=== PATIENT | female | born 1980 | race Caucasian/White ===

== ENCOUNTER 2017-01-16 23:57 | Inpatient (IN) | payer MEDICARE, OTHER ==
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
--- NOTE | ~2017-01-16 | PN ---
Unit #: [id number] #: [id number] Patient: ELIZABETH STRANGE [id number] [facility] [address] [place] [address] [id number] MR#: [id number] NAME: ELIZABETH STRANGE ROOM: P110 Age: 36 Sex: F Admission Date: 01/16/2017 : 1980 Attending Physician: Ed Salazar M.D. Admitting Physician: Ed Salazar M.D. Primary Care Physician: Primary Care Physician Rosalia CASSIDY NOTES DATE 01/22/2017 DISCUSSION Ms. Strange is a 36-year-old white female who was seen today and chart was reviewed and case was discussed with the staff. She has been anxious, withdrawn and rather seclusive to herself. Meanwhile, she has been cooperative with treatment recommendations and has been taking medications and tolerating them fairly well with no reported side effects. MENTAL STATUS EXAMINATION Young white female who was casually dressed with fair personal hygiene and appears to be in no acute distress or discomfort. She was awake and alert on interaction with intact orientation. Her mood was anxious with congruent affect. She denies any suicidal or homicidal ideation. Her insight and judgement remains slightly impaired. TREATMENT PLAN 1. Will continue on current medications and treatment protocol. Will monitor her response to the medications and make further adjustments as needed. 2. Will continue to follow up. Dictated by... Lauren Garcia/sapna TD: 01/23/2017 17:48 JOB #: [id number] Unit #: [id number] #: [id number] Patient: ELIZABETH STRANGE WILLMIRELLA PROGRESS NOTES Page 1 of 1 X Ed Salazar MD PROGRESS NOTE
--- NOTE | ~2017-01-16 | PN ---
Unit #: [id number] #: [id number] Patient: ELIZABETH STRANGE [id number] [facility] [address] [place] [address] [id number] I MR#: [id number] NAME: ELIZABETH STRANGE ROOM: P110 Age: 36 Sex: F Admission Date: 01/16/2017 : 1980 Attending Physician: Ed Salazar M.D. Admitting Physician: Ed Salazar M.D. Primary Care Physician: Primary Care Physician Rosalia GOODEN PROGRESS NOTES DATE 01/18/2017 DISCUSSION Ms. Strange is a 36-year-old white female who was seen today and chart was reviewed and case was discussed with the staff who reports patient remains disorganized with bizarre behavior and has been wandering around and has been having difficulty carrying on meaningful conversation and at times appears to be responding to internal stimuli and being out of touch with reality. However, she has not shown any agitation or aggression. MENTAL STATUS EXAMINATION Young white female who was casually dressed with fair personal hygiene and appears to be in no acute distress or discomfort. She was awake and alert with impaired attention and concentration. Her mood was anxious with congruent affect. Her speech is slow and restricted in content. Her thought processes were disorganized with some looseness of associations. Her insight and judgement remains significantly impaired. TREATMENT PLAN 1. Will continue on current medications and treatment protocol. Will monitor her response to the medications and make further adjustments as needed. 2. Will continue to follow up. Dictated by... Lauren Garcia/sapna TD: 01/18/2017 16:33 JOB #: [id number] Unit #: [id number] #: [id number] Patient: ELIZABETH STRANGE PROGRESS NOTES Page 1 of 1 X Ed Salazar MD PROGRESS NOTE
--- NOTE | ~2017-01-16 | PN ---
Unit #: [id number] #: [id number] Patient: ELIZABETH STRANGE [id number] [facility] [address] [place] [address] [id number] I MR#: [id number] NAME: ELIZABETH STRANGE ROOM: P110 Age: 36 Sex: F Admission Date: 01/16/2017 : 1980 Attending Physician: Ed Salazar M.D. Admitting Physician: Ed Salazar M.D. Primary Care Physician: Primary Care Physician Rosalia CASSIDY NOTES DATE 01/19/2017 DISCUSSION Ms. Strange is a 36-year-old white female with mood disorder and psychosis who was seen today and chart was reviewed and case was discussed with the staff. She has been anxious, withdrawn, disorganized and pacing the hallways, unkempt, disheveled, and bizarre behavior and mumbling, very paranoid and delusional and mumbles in my ear about someone's name saying that if I have seen them, if I heard about them and most of the time it is difficult to make out as to what exactly he is saying. However, she does appear to be quite compromised and out of touch with reality. MENTAL STATUS EXAMINATION Young white female who was casually dressed with fair personal hygiene and appears to be in no acute distress or discomfort. She was awake and alert on interaction with impaired attention and concentration. Her mood was anxious with congruent affect. Her speech is slow and restricted in content. Her thought processes were disorganized with some loose associations and flight of ideas. Her insight and judgement remains significantly impaired. TREATMENT PLAN 1. We will continue on current medications and treatment protocol. Will monitor her response to medications and make further adjustments as needed. 2. Will continue to follow up. Dictated by... Lauren Garcia/sapna TD: 01/19/2017 22:22 JOB #: [id number] Unit #: [id number] #: [id number] Patient: ELIZABETH STRANGE PROGRESS NOTES Page 1 of 1 X Ed Salazar A MD X PROGRESS NOTE
--- NOTE | ~2017-01-16 | PN ---
Unit #: [id number] #: [id number] Patient: ELIZABETH STRANGE [id number] [facility] [address] [place] [address] [id number] I MR#: [id number] NAME: ELIZABETH STRANGE ROOM: P110 Age: 36 Sex: F Admission Date: 01/16/2017 : 1980 Attending Physician: Ed Salazar M.D. Admitting Physician: Ed Salazar M.D. Primary Care Physician: Primary Care Physician Rosalia GOODEN PROGRESS NOTES DATE 01/21/2017 DISCUSSION Ms. Strange is a 36-year-old white female with mood disorder and psychosis who was seen today and chart was reviewed and case was discussed with the staff. The patient has been anxious, withdrawn disorganized and rather seclusive to herself and has been exhibiting bizarre behavior. Meanwhile, she has been taking medications and tolerating them fairly well with no reported side effects. MENTAL STATUS EXAMINATION Young white female who was casually dressed with fair personal hygiene, appears to be in no acute distress or discomfort. She was awake and alert on interaction with intact orientation. Her mood was anxious with congruent affect. Her speech was slow and tangential. Her thought processes were disorganized with some looseness of associations. Her insight and judgement remains significantly impaired. TREATMENT PLAN 1. We will continue her on her current medications and treatment protocol. We will monitor her response to the medication and make further adjustments as needed. 2. We will continue to follow up. Dictated by... Lauren Garcia/kapil TD: 01/22/2017 21:41 JOB #: [id number] Unit #: [id number] #: [id number] Patient: ELIZABETH STRANGE PROGRESS NOTES Page 1 of 1 X Ed Salazar MD PROGRESS NOTE
--- NOTE | ~2017-01-16 | HP ---
Unit #: [id number] #: [id number] Patient: ELIZABETH DUKE [id number] [place] [address] [id number] I MR#: [id number] NAME: ELIZABETH DUKE ROOM: P110 Age: 36 Sex: F Admission Date: 01/16/2017 : 1980 Attending Physician: Ed Salazar M.D. Admitting Physician: Ed Salazar M.D. Primary Care Physician: Primary Care Physician No HISTORY AND PHYSICAL HISTORY OF PRESENT ILLNESS Elizabeth is a 36 year old admitted to [address] [place] [address] with psychotic behavior. She remains very psychotic, is a poor historian so her history is taken from her chart. PAST MEDICAL HISTORY 1. History of cervical dysplasia. a. LEEP procedure. PAST SURGICAL HISTORY As above. ALLERGIES No known drug allergies. SOCIAL HISTORY Smokes 1 pack per day. Denies alcohol and illicit drug use. FAMILY HISTORY Medically noncontributory. REVIEW OF SYSTEMS She does not answer any questions appropriately. There are no reports of nausea, vomiting or diarrhea. She has had no cough or increased temperature. CURRENT MEDICATIONS 1. Risperdal 2 mg b.i.d. 2. Vistaril p.r.n. 3. Desyrel p.r.n. 4. Milk of Magnesia p.r.n. 5. Maalox p.r.n. 6. Tylenol p.r.n. PHYSICAL EXAMINATION GENERAL: Alert, well-nourished, in no apparent distress. VITAL SIGNS: Blood pressure 132/68, heart rate 80, respirations 16, temperature 98.6. WEIGHT: 160. HEIGHT: 5 feet 4 inches. SKIN: Warm and dry without rash or lesion. HEENT: Normocephalic. TMs not viewed. Oral and nasal passages clear. Conjunctivae clear. PERRLA. EOMs intact. Unit #: [id number] #: [id number] Patient: ELIZABETH DUKE NECK: Supple without lymphadenopathy or thyromegaly. HEART: Regular rate and rhythm without murmur. LUNGS: Clear. ABDOMEN: Soft, nontender. : Not done. EXTREMITIES: No evidence of cyanosis, clubbing or edema. Moves all without focal deficit. NEUROLOGICAL: Grossly within normal limits. Cranial Nerves: II: Visual jimenez are intact. III, IV AND : Extraocular movements are intact. Pupils are equal, round and reactive to light. V: Facial sensation is grossly normal. VII: Facial movements and expression are normal. VIII: Auditory acuity grossly intact. IX, X: Uvula is midline. Phonation is normal. XI: Patient shrugs shoulders and turns head normally. XII: Tongue protrudes in the midline. Sensory and Motor Function: Sensory and motor sensation is grossly normal. Motor: moves all extremities well. Coordination: Gait is normal. Deep Tendon Reflexes: Intact. IMPRESSION Psychiatric admission. RECOMMENDATIONS PSYCHIATRIC: Per psychiatrist. MEDICAL: See no contraindications to participate in facility's activities. MEDICAL PROGNOSIS Good. MEDICAL CONDITION Stable. Dictated by... Elizabeth Alonzo P.A.-C. for Lauren Castro/sapna TD: 01/17/2017 18:57 JOB #: [id number] HISTORY AND PHYSICAL Page 1 of 1 X Elizabeth Alonzo HISTORY AND PHYSICAL
--- NOTE | ~2017-01-16 | DS ---
Unit #: [id number] #: [id number] Patient: [facility] STRANGE [id number] [facility] [address] [place] [address] [id number] I MR#: [id number] NAME: ELIZABETH STRANGE ROOM: P110 Age: 36 Sex: F Admission Date: 01/16/2017 : 1980 Discharge Date: Attending Physician: Ed Salazar M.D. DISCHARGE SUMMARY IDENTIFYING DATA Ms. Strange is a 36-year-old single white female, who was a resident of [place], [place] and was self-referred to the hospital on a voluntary basis. DISCHARGE DIAGNOSES Psychiatric: Chronic paranoid schizophrenia. Medical: None. Stressors: Moderate psychosocial stressors. HISTORY OF PRESENT ILLNESS Please see initial psychiatric evaluation for details. PAST PSYCHIATRIC HISTORY Please see initial psychiatric evaluation for details. PAST MEDICAL HISTORY Please see initial psychiatric evaluation for details. HOSPITAL COURSE Ms. Strange was admitted to the adult psychiatric unit at [facility] [place] and was oriented to the hospital environment. Routine p.r.n. medications were initiated, and she was started back on her home medications, and her medications were adjusted, and she was closely monitored. She was taking the medications regularly and was tolerating them fairly well and was able to show a therapeutic response to the medications and was initially seen to be anxious, withdrawn, and quite disorganized, but was able to show significant improvement in her depression and psychosis and was willing to continue treatment on an outpatient basis and as such, it was decided that she will be discharged home and will continue treatment on an outpatient basis. DISCHARGE MEDICATIONS Saphris 10 mg b.i.d. for psychosis, Wellbutrin XL 150 mg in the morning for depression, and BuSpar 10 mg b.i.d. for anxiety. DISCHARGE CONDITION Stable. PROGNOSIS Fair. Dictated by... Unit #: [id number] #: [id number] Patient: ELIZABETH STRANGE Lauren Garcia/dimitry TD: 01/24/2017 07:15 JOB #: [id number] DISCHARGE SUMMARY Page 1 of 1 X Ed Salazar MD X DISCHARGE SUMMARY
--- NOTE | ~2017-01-16 | PN ---
Unit #: [id number] #: [id number] Patient: ELIZABETH STRANGE [id number] [facility] [address] [place] [address] [id number] I MR#: [id number] NAME: ELIZABETH STRANGE ROOM: P110 Age: 36 Sex: F Admission Date: 01/16/2017 : 1980 Attending Physician: Ed Salazar M.D. Admitting Physician: Ed Salazar M.D. Primary Care Physician: Primary Care Physician Rosalia CASSIDY NOTES DATE OF SERVICE 01/23/2017 DISCUSSION Ms. Strange is a 25-year-old white female who was seen today. Chart was reviewed and case was discussed with staff. She has been anxious, withdrawn, and rather seclusive to herself. Meanwhile, she has been cooperative with the treatment recommendations and has been taking the medications and tolerating them fairly well with no reported side effects. MENTAL STATUS EXAMINATION Young white female who is casually dressed with fair personal hygiene, appears to be in no acute distress or discomfort. The patient was awake and alert on interaction with intact orientation. Her mood is anxious with congruent affect. She denies any suicidal or homicidal ideations. Her insight and judgment remain slightly impaired. TREATMENT PLAN 1. We will continue her on her current medications and treatment protocol. We will monitor her response to the medications and make further adjustments as needed. 2. We will continue to follow up. Dictated by... Ed Salazar M.D. IAA/bzg TD: 01/24/2017 11:31 JOB #: [id number] Unit #: [id number] #: [id number] Patient: ELIZABETH STRANGE PROGRESS NOTES Page 1 of 1 X Ed Salazar MD PROGRESS NOTE
--- NOTE | ~2017-01-16 | PN ---
Unit #: [id number] #: [id number] Patient: ELIZABETH STRANGE [id number] [facility] [address] [place] [address] [id number] I MR#: [id number] NAME: ELIZABETH STRANGE ROOM: P110 Age: 36 Sex: F Admission Date: 01/16/2017 : 1980 Attending Physician: Ed Salazar M.D. Admitting Physician: Ed Salazar M.D. Primary Care Physician: Primary Care Physician Rosalia CASSIDY NOTES DATE 01/20/2017 DISCUSSION Ms. Strange is a 36-year-old white female who was seen today and chart was reviewed and case was discussed with the staff. She has been anxious, withdrawn, disorganized and exhibiting bizarre behavior. Meanwhile, she has been cooperative with treatment recommendations. She has been taking the medications and tolerating them fairly well with no reported side effects. MENTAL STATUS EXAMINATION Young white female who was casually dressed with fair personal hygiene, appears to be in no acute distress or discomfort. She was awake and alert on interaction with intact orientation. Her mood was anxious with congruent affect. Her speech was slow and goal-directed. She denies any suicidal or homicidal ideations. Her insight and judgement remains slightly impaired. TREATMENT PLAN 1. We will continue her on her current medications and treatment protocol. We will monitor her response to the medications and make further adjustments as needed. 2. We will continue to follow up. Dictated by... Lauren Garcia/kapil TD: 01/22/2017 00:59 JOB #: [id number] Unit #: [id number] #: [id number] Patient: ELIZABETH STRANGE PROGRESS NOTES Page 1 of 1 X Ed Salazar MD PROGRESS NOTE
[2017-01-17 09:36] LABS: BASOPHIL% 0.4 % (0-2.5); EOSINOPHIL# 0.2 X10e3 (0-0.7); EOSINOPHIL% 2.8 % (0.0-7.0); HEMATOCRIT 39.3 % (35.0-45.0); HEMOGLOBIN 12.9 gm/dL (12.0-16.0); LYMPHOCYTE# 2.2 X10e3 (1.0-3.5); LYMPHOCYTE% 32.9 % (17.0-45.0); MEAN CELL VOLUME 97.4 FL (83-96); MEAN CORPUSCULAR HGB CONC 32.8 g/dL (30-36); MEAN PLATELET VOLUME 7.9 FL (6.5-11.5); MONOCYTE# 0.4 X10e3 (0-1.0); MONOCYTE% 6.5 % (3.0-12.0); NEUTROPHIL# 3.9 X10e3 (1.5-7.1); NEUTROPHIL% 57.4 % (40-75); PLATELET COUNT 234 X10e3 (140-420); RED BLOOD COUNT 4.03 X10e (3.90-5.30); WHITE BLOOD COUNT 6.7 X10e3 (4.0-10.5)
[2017-01-17 09:37] LABS: DIFF IND NO
[2017-01-17 10:03] LABS: THYROID STIMULATING HORMONE 0.36 uIU/ml (0.34-5.60)
[2017-01-17 10:10] LABS: FREE THYROXIN (T4) 0.73 ng/dL (0.58-1.64)
[2017-01-17 10:56] LABS: ALBUMIN SERUM 4.1 g/dL (3.5-5.0); BILIRUBIN,TOTAL 0.7 mg/dL (0.2-2.0); BUN/CREATININE RATIO 24.28; CREATININE SERUM 0.7 mg/dL (0.6-1.4); GLOM FILT RATE Estimated 109.9 mL/min (>60); POTASSIUM 4.2 mmol/L (3.5-5.1); PROTEIN TOTAL SERUM 6.5 g/dL (6.0-8.3)
[2017-01-20 13:38] LABS: URINE APPEARANCE CLEAR; URINE BILIRUBIN NEG (NEG); URINE BLOOD TRACE (NEG); URINE COLOR YELLOW; URINE GLUCOSE NEG (NEG); URINE KETONE NEG (NEG); URINE LEUKOCYTE ESTERASE NEG (NEG); URINE NITRATE NEG (NEG); URINE PROTEIN NEG (NEG); URINE SPECIFIC GRAVITY 1.013 (1.003-1.035); URINE UROBILINOGEN 0.2 MG/DL (NEG)
[2017-01-20 13:41] LABS: U HYALINE CASTS AUWI 0-2 /[LPF]; URINE BACTERIA AUWI 2+ (NEGATIVE); URINE SQUAMOUS EPITHELIAL CELL MOD /[HPF]
[2017-01-20 14:04] LABS: AMPHETAMINE NEG (NEG); BARBITURATES NEG (NEG); BENZODIAZEPINES NEG (NEG); COCAINE NEG (NEG); MARIJUANA NEG (NEG); OPIATES NEG (NEG); TRICYCLIC ANTIDEPRESSANTS NEG (NEG); U METHADONE NEG (NEG)
== END 2017-01-24 12:00 | disposition home or self-care (01) | DRG 885 ==
LOC: P1S 23:57
PROVIDERS: Psychiatry & Neurology Psychiatry
DX: F20.0 Paranoid schizophrenia (principal); Z91.14 Patient's other noncompliance with medication regimen; R45.851 Suicidal ideations; F17.210 Nicotine dependence, cigarettes, uncomplicated; F41.9 Anxiety disorder, unspecified
CPT/HCPCS: 80053; 80307; 81003; 84439; 84443; 84703; 85025